=== PATIENT | female | born 1970 | race Two or more races ===

== ENCOUNTER 2020-11-07 17:05 | Emergency (ER) | payer BC, OTHER ==
[~2020-11-07] VITALS: Ht 167.6 cm; Wt 86.2 kg
[2020-11-07 17:06] VITALS: BP 132/83
[2020-11-07] MEDS ORDERED: KETOROLAC TROMETH 60MG/2ML VIAL IM ONE (19:00)
[2020-11-07] MEDS ORDERED: SODIUM CHLORIDE 0.9% 1,000 ML IV ONE (19:00)
== END 2020-11-07 20:10 | disposition home or self-care (01) ==
LOC: ER 17:05
DX: F41.9 Anxiety disorder, unspecified (principal); R51.9 Headache, unspecified; Z20.822 Contact with and (suspected) exposure to COVID-19
CPT/HCPCS: 96372; 99283; J1885